=== PATIENT | male | born 1995 | race African-American/Black ===

== ENCOUNTER 2018-08-15 07:00 | Emergency (ER) | payer OTHER ==
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
== END 2018-08-15 08:20 | disposition home or self-care (01) ==
LOC: EDBD 07:00 → VM.ED 07:00
DX: S00.81XA Abrasion of other part of head, initial encounter (principal); S80.211A Abrasion, right knee, initial encounter; S60.511A Abrasion of right hand, initial encounter; M25.522 Pain in left elbow; V49.40XA Driver injured in collision with unspecified motor vehicles in traffic accident, initial encounter
CPT/HCPCS: 70450; 72125; 73080-LT; 73130-RT; 99285-25